=== PATIENT | female | born 1955 | race African-American/Black ===

== ENCOUNTER 2016-10-09 15:00 | Emergency (ER) | payer OTHER ==
[~2016-10-09] VITALS: Ht 170.2 cm; Wt 102.5 kg
--- NOTE | 2016-10-09 15:18 | NUR ---
PT AMBULATORY TO ER BED 12. C/O LT THIGH PAIN ON AND OFF X 5 MONTHS. DIAGNOSED W/ BLOOD CLOT, . DENIES CHEST PAIN OR SOB. GOWNED AND PLACED ON MONITOR. AWAITING MD FLORES.
--- NOTE | 2016-10-09 15:27 | NUR ---
DR HENDRIX AT BEDSIDE FOR EVAL.
[2016-10-09 15:46] LABS: BASOPHILS # (AUTO) 0.3 /CMM (0.0-0.2); BASOPHILS % (AUTO) 3.2 % (0.0-2.0); EOSINOPHILS % (AUTO) 0.3 % (0.0-6.0); HEMATOCRIT 41 % (33-45); HEMOGLOBIN 13.4 g/dL (11.5-14.8); LYMPHOCYTES # (AUTO) 2.8 /CMM (0.8-4.8); LYMPHOCYTES % (AUTO) 30.7 % (20.0-44.0); MEAN CORPUSCULAR HEMOGLOBIN 28 PG (26.0-33.0); MEAN CORPUSCULAR HGB CONC 33 g/dl (31.0-36.0); MEAN CORPUSCULAR VOLUME 86 fL (82-100); MONOCYTES # (AUTO) 0.6 /CMM (0.1-1.30); MONOCYTES % (AUTO) 6.1 % (2.0-12.0); NEUTROPHILS # (AUTO) 5.5 /CMM (1.8-8.9); NEUTROPHILS % (AUTO) 59.7 % (43.0-81.0); PLATELET COUNT (AUTO) 299 /CMM (150-450); RDW COEFFICIENT OF VARIATION 15.1 (11.5-15.0); RED BLOOD CELL COUNT(AUTO) 4.74 MIL/uL (4.0-5.2); WHITE BLOOD COUNT (AUTO) 9.2 K/uL (4.3-11.0)
--- NOTE | 2016-10-09 15:47 | NUR ---
RADIOLOGY AT BEDSIDE FOR CHEST XRAY.
[2016-10-09 15:56] LABS: CALCIUM, SERUM 9.1 mg/dL (8.5-10.1); CARBON DIOXIDE 29 mmol/L (21-32); CHLORIDE 107 mmol/L (98-107); CREATININE 0.8 mg/dL (0.6-1.3); GFR 88 mL/min (>60); GLUCOSE 118 mg/dL (74-106); POTASSIUM 4.3 mmol/L (3.5-5.1); SODIUM SERUM 142 mmol/L (136-145); UREA NITROGEN, BLOOD 13 mg/dL (7-18)
[2016-10-09 15:58] LABS: INR 1.99 (0.87-1.13); PROTHROMBIN TIME 21.4 SECS (9.5-12.7)
[2016-10-09 16:03] LABS: TROPONIN I < 0.017 ng/mL (0.00-0.056)
--- NOTE | 2016-10-09 16:05 | NUR ---
U/S TECH AT BEDSIDE FOR BLE DUPLEX ULTRASOUND.
[2016-10-09 16:08] LABS: B-TYPE NATRIURETIC PEPTIDE 146 PG/ML (0-125)
[2016-10-09] MEDS ORDERED: FLUO40CA49 PO (16:20)
[2016-10-09] MEDS ORDERED: LOSA50TA21 PO (16:20)
[2016-10-09] MEDS ORDERED: HYDR-3326 PO (16:20)
[2016-10-09] MEDS ORDERED: POLY17PO4 PO (16:20)
[2016-10-09] MEDS ORDERED: WARF5TAB77 PO (16:20)
--- NOTE | 2016-10-09 16:37 | NUR ---
Note princess in ED - 10/09/16 at 1637 by ARMIN Patient discharged to home in stable condition. Written and verbal after care instructions given. Patient verbalizes understanding of instruction.IV removed. Catheter intact and site benign. Pressure and 4x4 applied to site. No bleeding noted.
[2016-10-09 16:40] VITALS: BP 146/87
== END 2016-10-09 16:41 | disposition home or self-care (01) ==
LOC: ER 15:03
DX: I82.402 Acute embolism and thrombosis of unspecified deep veins of left lower extremity (principal); Z85.038 Personal history of other malignant neoplasm of large intestine; Z88.2 Allergy status to sulfonamides; Z88.0 Allergy status to penicillin; Z88.1 Allergy status to other antibiotic agents
CPT/HCPCS: 36415; 71010-TC; 80048-TC; 83880; 84484-TC; 85025-TC; 85730-TC; 93970-TC; A4606; Z7610

== ENCOUNTER 2017-01-31 08:01 | Emergency (ER) | payer OTHER ==
[~2017-01-31] VITALS: Ht 170.2 cm; Wt 104.3 kg
[~2017-01-31 08:01] MED LIST: FLUO40CA49 PO; HYDR-3326 PO; LOSA50TA21 PO; POLY17PO4 PO; WARF5TAB77 PO
--- NOTE | 2017-01-31 08:15 | NUR ---
PT CAME IN FOR VAGINAL BLEEDING THIS AM; JUST STARTED LOVENOX YESTERDAY PER PMD. VSS. SEEN BY FOR EVAL. SAFETY AND COMFORT MEASURES PROVIDED. WILL MONITOR.
[2017-01-31] MEDS ORDERED: IV NS 0.9% 1,000 ML BAG IV ONE (08:30)
--- NOTE | 2017-01-31 08:30 | NUR ---
ASSISTED FOR PE AT .
--- NOTE | 2017-01-31 08:40 | NUR ---
IV ACCESS STARTED, BLOOD DRAWN FOR LABS. PT MEDICATED ORDERED.
[2017-01-31 08:55] LABS: BASOPHILS % (AUTO) 0.5 % (0.0-2.0); EOSINOPHILS # (AUTO) 0.1 /CMM (0.0-0.7); EOSINOPHILS % (AUTO) 0.6 % (0.0-6.0); HEMATOCRIT 40 % (33-45); HEMOGLOBIN 13.1 g/dL (11.5-14.8); LYMPHOCYTES % (AUTO) 31.7 % (20.0-44.0); MEAN CORPUSCULAR HEMOGLOBIN 29 PG (26.0-33.0); MEAN CORPUSCULAR HGB CONC 33 g/dl (31.0-36.0); MEAN CORPUSCULAR VOLUME 88 fL (82-100); MONOCYTES # (AUTO) 0.7 /CMM (0.1-1.30); MONOCYTES % (AUTO) 7.8 % (2.0-12.0); NEUTROPHILS # (AUTO) 5.6 /CMM (1.8-8.9); NEUTROPHILS % (AUTO) 59.4 % (43.0-81.0); PLATELET COUNT (AUTO) 278 /CMM (150-450); RDW COEFFICIENT OF VARIATION 14.3 (11.5-15.0); RED BLOOD CELL COUNT(AUTO) 4.48 MIL/uL (4.0-5.2); WHITE BLOOD COUNT (AUTO) 9.5 K/uL (4.3-11.0)
--- NOTE | 2017-01-31 08:56 | NUR ---
PT TAKENT TO CT.
[2017-01-31 08:58] LABS: APPEARANCE,URINE CLOUDY (CLEAR); BILIRUBIN,URINE NEGATIVE (NEGATIVE); BLOOD, URINE 3+ Ery/uL (NEGATIVE); COLOR,URINE AMBER (YELLOW); KETONES,URINE TRACE (NEGATIVE); LEUKOCYTE ESTERASE ,URINE 1+ (NEGATIVE); NITRITE, URINE POSITIVE (NEGATIVE); PH,URINE 6.5 (5.0-8.0); PROTEIN,URINE 2+ mg/dl (NEGATIVE); UGLUCOSE NEGATIVE (NEGATIVE)
[2017-01-31 09:04] LABS: BACTERIA,URINE Rare /HPF (None Seen); RBC,URINE TOO NUMEROUS TO COUN /HPF (0-2); SQUAMOUS EPITHELIAL CELL,UR Rare /HPF (None Seen)
[2017-01-31 09:05] LABS: CALCIUM, SERUM 8.7 mg/dL (8.5-10.1); CREATININE 0.9 mg/dL (0.6-1.3); POTASSIUM 4.1 mmol/L (3.5-5.1)
[2017-01-31 09:10] LABS: ALBUMIN 3.3 g/dL (3.4-5.0); BILIRUBIN,DIRECT 0.1 mg/dL (0.0-0.2); BILIRUBIN,TOTAL 0.6 mg/dL (0.2-1.0); TOTAL PROTEIN, SERUM 7.1 g/dL (6.4-8.2)
[2017-01-31] MEDS ORDERED: CIPROFLOXACIN IV RTU 200 ML IV ONE (09:12)
[2017-01-31 09:22] LABS: INR 1.85 (0.87-1.13); PROTHROMBIN TIME 20.6 SECS (9.5-12.7)
[2017-01-31] MEDS ORDERED: CIPROFLOXACIN IV RTU 400 MG in PREMIX 1 EA IV SCH (09:30)
--- NOTE | 2017-01-31 10:20 | NUR ---
IV removed. Catheter intact and site benign. Pressure and 4x4 applied to site. No bleeding noted.
[2017-01-31 10:29] VITALS: BP 126/61
--- NOTE | 2017-01-31 10:29 | NUR ---
Patient discharged to home in stable condition. Written and verbal after care instructions given. Patient verbalizes understanding of instruction.
== END 2017-01-31 10:30 | disposition home or self-care (01) ==
LOC: ER 08:02
DX: N30.91 Cystitis, unspecified with hematuria (principal); C18.9 Malignant neoplasm of colon, unspecified; Z79.01 Long term (current) use of anticoagulants; Z85.038 Personal history of other malignant neoplasm of large intestine; Z86.711 Personal history of pulmonary embolism; Z86.718 Personal history of other venous thrombosis and embolism; Z88.0 Allergy status to penicillin; Z88.2 Allergy status to sulfonamides
CPT/HCPCS: 36415; 71250; 74176; 80048; 80076; 81001; 83690; 85025; 85730; 87086; 96361; 96365; 99285; A4216; A4606; J0744 ×2; J7030; Z7610; 81000-TC